=== PATIENT | female | born 1990 | race Caucasian/White ===

== ENCOUNTER 2019-11-23 14:05 | Emergency (ER) | payer BC, OTHER ==
[~2019-11-23] VITALS: Ht 167.6 cm; Wt 79.5 kg
--- NOTE | 2019-11-23 16:18 | PHYS DOC ---
Past Medical History Past Medical History: Anxiety, Asthma, Depression, Other Additional Past Medical Histor: OVARIAN CYSTS,PCOS (JUDY YEN APRN) Past Surgical History: Cholecystectomy (JUDY YEN APRN) Smoking Status: Never Smoker Alcohol Use: None (JUDY YEN APRN) Adult General Chief Complaint Chief Complaint: ABDOMINAL PAIN IN [facility] HPI Patient is a 29 year old female, accompanied by her friend, who presents to the emergency department with complaints of bilateral lower abdominal pain that started after she was adjusted by the chiropractor earlier today. Patient states it feels like there are sharp pinches in her bilateral lower quadrants. She states that she is currently 16 weeks . Patient reports that she is 2, para 0, AB 1 with a previous miscarriage at approximately 12 weeks. Her last menstrual cycle was on August 01, 2019. She states that her estimated due date is May 07, 2020. She denies any vaginal bleeding, irregular vaginal discharge, nausea, vomiting, diarrhea, back pain, fever, cough, shortness of breath, or leg swelling at this time. She states she went to the chiropractor because she has been having problems with left-sided low back pain that her OB recommended it for treatment of sciatica. She denies any saddle anesthesia or loss of bowel or bladder control. She currently rates her pain as 3 out of 10 on the pain scale, she denies any alleviating or exacerbating factors. (JUDY YEN APRN) Review of Systems Review of Systems All other ROS is negative unless otherwise noted in HPI. (JUDY YEN APRN) Allergies Allergies Allergies Coded Allergies Type Severity Reaction Last Updated Verified Penicillins Allergy Unknown 11/23/19 Yes Sulfa (Sulfonamide Antibiotics) Allergy Unknown 11/23/19 Yes amoxicillin Allergy Unknown 11/23/19 Yes (CHUYITA PRYOR DO) Physical Exam Physical Exam See Above Constitutional: Well developed, well nourished, no acute distress, non-toxic appearance. [] HENT: Normocephalic, atraumatic, bilateral external ears normal, oropharynx moist, no oral exudates, nose normal. [] Eyes: PERRLA, EOMI, conjunctiva normal, no discharge. [] Neck: Normal range of motion, no stridor. [] Cardiovascular:Heart rate regular rhythm, no murmur [] Lungs & Thorax: Respirations even and unlabored, no retractions, no respiratory distress Abdomen: Bowel sounds normal, soft, no tenderness, palpable fundus midway between the umbilicus and the pubis Skin: Warm, dry, no erythema, no rash. [] Extremities: No cyanosis, ROM intact, no edema. [] Neurologic: Alert and oriented X 3, no focal deficits noted. [] Psychologic: Affect normal, judgement normal, mood normal. [] (JUDY YEN APRN) Current Patient Data Vital Signs Vital Signs Date Time Temp Pulse Resp B/P (MAP) Pulse Ox O2 Delivery O2 Flow Rate FiO2 11/23/19 16:58 82 16 108/75 (86) 97 Room Air 11/23/19 15:00 98.8 98.8 (CHUYITA PRYOR DO) Lab Values Laboratory Tests Test 11/23/19 15:09 11/23/19 15:15 Urine Collection Type Unknown Urine Color Yellow Urine Clarity Clear Urine pH 6.0 Urine Specific [place] 1.020 Urine Protein Negative mg/dL (NEG-TRACE) Urine Glucose (UA) Negative mg/dL (NEG) Urine Ketones (Stick) 15 mg/dL (NEG) Urine Blood Negative (NEG) Urine Nitrite Negative (NEG) Urine Bilirubin Negative (NEG) Urine Urobilinogen Dipstick 0.2 mg/dL (0.2 mg/dL) Urine Leukocyte Esterase Negative (NEG) Urine RBC 3-5 /HPF (0-2) Urine WBC 1-4 /HPF (0-4) Urine Squamous Epithelial Cells Mod /LPF Urine Bacteria 0 /HPF (0-FEW) Urine Hyaline Casts Moderate /HPF Urine Mucus Marked /LPF POC Urine HCG, Qualitative Hcg positive (Negative) (CHUYITA PRYOR DO) EKG EKG [] (JUDY YEN APRN) Radiology/Procedures Radiology/Procedures PROCEDURE: PREG MORE THAN OR EQ TO 14 WKS CLINICAL HISTORY: Low abdominal pain post manipulation COMPARISON: None available. TECHNIQUE: Limited transabdominal ultrasound of the uterus was performed. FINDINGS: There is a single live fetus in breech position. Cardiac activity is visualized and documented at a rate of 143 beats per minute. Cervix is closed. Cervical length measures 3.8 cm. The placenta is posterior without placenta previa. The amniotic fluid is normal for gestational stage. Current measurements are: BPD - 3.36 cm = 16 weeks 3 days HC - 12.78 cm = 16 weeks 3 days AC - 10.14 cm = 16 weeks 1 day FL - 2.21 cm = 16 weeks 4 days The gestational size based on todays measurements is 16 weeks 3 days. The estimated weight is 155 +/- 23 gm. The estimated date of delivery is 05/06/2020. No free pelvic fluid.s IMPRESSION: 1. Single live intrauterine gestation with estimated gestational age of 16 weeks 3 days, with an estimated delivery date of 05/06/2020. 2. Heart rate was 143 bpm. [] (JUDY YEN APRN) Course & Med Decision Making Course & Med Decision Making Pertinent Labs and Imaging studies reviewed. (See chart for details) Patient is a 29-year-old female who presents to emergency department with c omplaints of bilateral lower abdominal discomfort after having chiropractic adjustment earlier today. Patient states initially after the appointment she felt fine. However later she developed sharp sensations of discomfort in both sides of her lower abdomen. Her UA was unremarkable, a ultrasound was performed and revealed a single live intrauterine fetus measuring 16 weeks 3 days, with a Heart rate of 143 bpm. she was likely experiencing round ligament pain. She was encouraged to follow-up with her OBGYN this week, return to the ER if symptoms worsen. Pt verbalized an understanding of home care, medications, follow-up, and return to ED instructions and was in agreement with the plan of care. [] [] (JUDY YEN APRN) Dragon Disclaimer Dragon Disclaimer This electronic medical record was generated, in whole or in part, using a voice recognition dictation system. (JUDY YEN APRN) Departure Departure Impression: Primary Impression: Round ligament pain Disposition: 01 HOME, SELF-CARE Condition: STABLE Referrals: UNKNOWN PCP NAME (PCP) Patient Instructions: Round Ligament Pain Additional Instructions: Follow-up with your [employer] this week, return to the ER if symptoms worsen. Attending Signature Attending Signature I have reviewed the PA/DENTAL AIDE's note and plan of care. I was available for consultation as needed during the patient's visit in the emergency department. I agree with the clinical impression, plan, and disposition. (CHUYITA PRYOR DO) JUDY YEN APRN Nov 23, 2019 16:18 CHUYITA PRYOR DO Nov 23, 2019 21:16
[2019-11-23 16:24] LABS: BILIRUBIN,URINE NEGATIVE (NEG); CLARITY,URINE CLEAR; COLOR,URINE YELLOW; NITRITE,URINE NEGATIVE (NEG); PROTEIN,URINE NEGATIVE (NEG-TRACE); UROBILINOGEN,URINE 0.2 mg/dL (0.2 mg/dL)
--- NOTE | 2019-11-23 16:34 | RAD ---
CLINICAL HISTORY: Low abdominal pain post manipulation COMPARISON: None available. TECHNIQUE: Limited transabdominal ultrasound of the uterus was performed. FINDINGS: There is a single live fetus in breech position. Cardiac activity is visualized and documented at a rate of 143 beats per minute. Cervix is closed. Cervical length measures 3.8 cm. The placenta is posterior without placenta previa. The amniotic fluid is normal for gestational stage. Current measurements are: BPD - 3.36 cm = 16 weeks 3 days HC - 12.78 cm = 16 weeks 3 days AC - 10.14 cm = 16 weeks 1 day FL - 2.21 cm = 16 weeks 4 days The gestational size based on todays measurements is 16 weeks 3 days. The estimated weight is 155 +/- 23 gm. The estimated date of delivery is 05/06/2020. No free pelvic fluid.s IMPRESSION: 1. Single live intrauterine gestation with estimated gestational age of 16 weeks 3 days, with an estimated delivery date of 05/06/2020. 2. Heart rate was 143 bpm. Electronically signed by: Gurmeet Ly MD (11/23/2019 4:31 PM) [id number]
[2019-11-23 16:35] LABS: HYALINE CASTS, URINE MODERATE /HPF; SQUAMOUS EPITHELIAL CELL,UR MOD /LPF
[2019-11-23 16:37] LABS: BACTERIA,URINE 0 /HPF (0-FEW)
[2019-11-23 16:58] VITALS: BP 108/75
== END 2019-11-23 17:08 | disposition home or self-care (01) ==
LOC: ER 14:05
DX: O26.892 Other specified pregnancy related conditions, second trimester (principal); R10.2 Pelvic and perineal pain; R10.31 Right lower quadrant pain; R10.32 Left lower quadrant pain; M54.5 Low back pain; F41.9 Anxiety disorder, unspecified; F32.9 Major depressive disorder, single episode, unspecified; J45.909 Unspecified asthma, uncomplicated; Z90.49 Acquired absence of other specified parts of digestive tract; Z88.0 Allergy status to penicillin; Z88.1 Allergy status to other antibiotic agents; Z88.2 Allergy status to sulfonamides; Z3A.16 16 weeks gestation of pregnancy
CPT/HCPCS: 76805; 81001; 81025; 99284